=== PATIENT | female | born 1945 | race Caucasian/White ===

== ENCOUNTER 2019-11-28 05:52 | Day surgery (SDC) | payer OTHER, MEDICARE ==
[~2019-11-28] VITALS: Ht 160 cm; Wt 68.0 kg
[~2019-11-28 05:52] MED LIST: CELEBREX100 MG/1 C PO; NEXIUM20 MG PO; TRAMADOL-ACETA1 EACH PO; VITAMIN D22000 UNIT PO; ZOLPIDEM TARTRA10 MG PO; ZYRTEC10 M5 PO; [UNRECOGNIZED DRUG - OTHER] PO
[2019-11-28 06:59] VITALS: BP 154/83
== END 2019-11-28 11:35 | disposition home or self-care (01) ==
LOC: OR 05:52 → TBA 11:00 → OR 11:35
DX: M19.071 Primary osteoarthritis, right ankle and foot (principal); M20.21 Hallux rigidus, right foot; M77.41 Metatarsalgia, right foot; M24.574 Contracture, right foot; M20.41 Other hammer toe(s) (acquired), right foot; S93.12 Dislocation of metatarsophalangeal joint; K21.9 Gastro-esophageal reflux disease without esophagitis; Z98.890 Other specified postprocedural states; Z79.899 Other long term (current) drug therapy; X58.XXXS Exposure to other specified factors, sequela
CPT/HCPCS: 50010; 50101; 50386; 56524; 56526; 56527; 57091; 57178; 57277; 57278; 57458; 57459; 57460; 57461; 57462; 57463; 57464; 57465; 57466; 57467; 62110; 62900; 70005